=== PATIENT | male | born 1950 ===

== ENCOUNTER 2017-08-07 10:14 | Inpatient (IN) | payer MEDICARE ==
[2017-08-07 10:24] VITALS: BMI 23.6
--- NOTE | 2017-08-07 11:06 | ED PDOC ---
HPI: General Adult Time Seen by Provider: 08/07/17 10:45 Chief Complaint (Nursing): Cough, Cold, Congestion Chief Complaint (Provider): [place] x 4-5 months History Per: Patient History/Exam Limitations: no limitations Onset/Duration Of Symptoms: Days Have you had recent travel within the past 21 days to any of the following countries: [place], [place], [place] or [place]?: No Current Symptoms Are (Timing): Still Present Additional Complaint(s): 67 yo male with no medical problems presents with cough x 4 months. Pt states at night he has worsening cough with phlegm. Pt was seen by a new PMD last week. PT was sent for several tests including EKG and CXR. PT states his insurance will not be active until August 20 so he has been unable to get tests. Past Medical History Reviewed: Historical Data, Nursing Documentation, Vital Signs Vital Signs: Last Vital Signs Temp 98 F 08/07/17 12:36 Pulse 78 08/07/17 12:36 Resp 18 08/07/17 12:36 BP 112/68 08/07/17 12:36 Pulse Ox 96 08/07/17 12:36 - Medical History PMH: No Chronic Diseases - Surgical History Surgical History: No Surg Hx - Family History Family History: States: No Known Family Hx - Living Arrangements Living Arrangements: With Family - Social History Current smoker - smoking cessation education provided: No - Allergies Allergies/Adverse Reactions: Allergies Allergy/AdvReac Type Severity Reaction Status Date / Time seasonal Allergy ITCHING Uncoded 08/07/17 10:30 Review of Systems ROS Statement: Except As Marked, All Systems Reviewed And Found Negative Constitutional: Negative for: Fever, Chills Respiratory: Positive for: Cough, Sputum. Negative for: Shortness of Breath Physical Exam - Reviewed Nursing Documentation Reviewed: Yes Vital Signs Reviewed: Yes - Physical Exam Appears: Positive for: Well, Non-toxic, No Acute Distress Head Exam: Positive for: ATRAUMATIC, NORMAL INSPECTION, NORMOCEPHALIC Skin: Positive for: Normal Color, Warm, DRY Eye Exam: Positive for: Normal appearance ENT: Positive for: Normal ENT Inspection Neck: Positive for: Normal, Painless ROM Cardiovascular/Chest: Positive for: Regular Rate, Rhythm Respiratory: Positive for: Normal Breath Sounds. Negative for: Accessory Muscle Use, Respiratory Distress Back: Positive for: Normal Inspection Extremity: Positive for: Normal ROM Neurologic/Psych: Positive for: Alert, Oriented - Laboratory Results Result Diagrams: 08/07/17 12:20 08/07/17 12:20 - ECG O2 Sat by Pulse Oximetry: 96 Medical Decision Making Medical Decision Making: Abnormal CXR CT order. Pt with elevated proBnP, infiltrate on CT, bilateral effusion. Discussed case with Dr. Gil. Disposition - Clinical Impression Clinical Impression: CHF (congestive heart failure), Pneumonia - Patient ED Disposition Is Patient to be Admitted: Yes - Disposition Disposition Time: 15:47 Condition: STABLE Forms: [employer] (Yoruba)
--- NOTE | 2017-08-07 12:00 | RAD ---
HISTORY: cough x 4 months COMPARISON: No prior. TECHNIQUE: Chest PA and lateral FINDINGS: LUNGS: No infiltrate. PLEURA: Small bilateral pleural effusion. No pneumothorax. CARDIOVASCULAR: Normal heart size. Congestive change. Findings suspicious for congestive heart failure without evidence of neeraj pulmonary edema. OSSEOUS STRUCTURES: No significant abnormalities. VISUALIZED UPPER ABDOMEN: Normal. OTHER FINDINGS: None. IMPRESSION: Congestive change and small bilateral pleural effusion. Possible congestive heart failure.
[2017-08-07 12:29] LABS: BASO % 0.2 % (0.0-2.0); EOS # 0.1 K/uL (0.0-0.7); EOS % 1.2 % (0.0-4.0); HEMOGLOBIN 13.7 g/dL (12.0-18.0); LYMPH # 1.4 K/uL (1.0-4.3); LYMPH % 13.7 % (20.0-40.0); MEAN CELL VOLUME 81.9 fl (80.0-94.0); MEAN CORPUSCULAR HEMOGLOBIN 27.8 pg (27.0-31.0); MEAN CORPUSCULAR HGB CONC 33.9 g/dL (33.0-37.0); MEAN PLATELET VOLUME 9.9 fl (7.2-11.7); MONO # 0.8 K/uL (0.0-0.8); MONO % 7.7 % (0.0-10.0); NEUT # 7.8 K/uL (1.8-7.0); NEUT % 77.2 % (50.0-75.0); NRBC % 0.1 % (0.0-0.0); RBC 4.94 Mil/uL (4.40-5.90); RED CELL DISTRIBUTION WIDTH 15.4 % (11.5-14.5); WHITE BLOOD COUNT 10.2 K/uL (4.8-10.8)
[2017-08-07 12:35] LABS: ALB/GLOB RATIO 1.2 (1.0-2.1); ALBUMIN 3.9 g/dL (3.5-5.0); ALT/SGPT 31 U/L (21-72); AST/SGOT 19 U/L (17-59); BLOOD UREA NITROGEN 20 mg/dl (9-20); CALCIUM 9.6 mg/dL (8.4-10.2); GFR AFRICAN-AMERICAN > 60; GFR NON-AFRICAN AMERICAN > 60
[2017-08-07 12:46] LABS: B-TYPE NATRIURETIC PEPTIDE 3310 pg/ml (0-900)
[2017-08-07] MEDS ORDERED: Sodium Chloride 0.9% 50 ML IV ONE (13:10)
[2017-08-07] MEDS ORDERED: Iohexol 300 100 ML IJ ONE (13:10)
--- NOTE | 2017-08-07 13:58 | CT ---
PROCEDURE: CT Chest with contrast HISTORY: cough x 4 months COMPARISON: None. TECHNIQUE: Contiguous axial images were obtained through the chest with intravenous contrast enhancement. Sagittal and coronal reconstructions were performed. IV contrast: 95 cc Omnipaque 300 Radiation dose (DLP): 405.54 mGy-cm. This CT exam was performed using one or more of the following dose reduction techniques: Automated exposure control, adjustment of the mA and/or kV according to patient size, and/or use of iterative reconstruction technique. FINDINGS: LUNGS: Mild bilateral lower lobe compressive atelectasis. Few small ill-defined opacities in the right upper lobe common nonspecific. Cannot rule out infectious etiology. No neeraj pulmonary infiltrate. 5 mm subpleural nodule in left upper lobe (series 3, image 37). No followup required for this nodule. No other pulmonary mass identified. MEDIASTINUM: Marked aneurysmal dilatation of the ascending thoracic aorta to a diameter of 5.1 cm. Aortic arch and descending thoracic aorta demonstrates normal diameter. Normal sized heart. Main pulmonary artery unremarkable. No vascular congestion. No lymphadenopathy. PLEURA: Moderate bilateral pleural effusion. No pneumothorax. BONES: No fracture. No destructive lesion. UPPER ABDOMEN: Grossly unremarkable. OTHER FINDINGS: None. IMPRESSION: Moderate bilateral pleural effusion with mild bilateral lower lobe compressive atelectasis. Small ill-defined opacities in the right upper lobe, possibly infectious. 5 mm left upper lobe nodule common nonspecific. Aneurysmal dilatation of the ascending thoracic aorta.
[2017-08-07] MEDS ORDERED: Sodium Chloride 3% for Inhalation 4 ML VIAL.NEB IH PRN (14:52)
[2017-08-07] MEDS ORDERED: Azithromycin 500 MG in Sodium Chloride 0.9% 250 ML IVPB ONE (16:15)
[2017-08-07] MEDS ORDERED: cefTRIAXone (Rocephin) 1 gm Inj ONE (16:29)
[2017-08-07] MEDS: Azithromycin 500 MG in Sodium Chloride 0.9% 250 ML IVPB SCH (21:00)
[2017-08-08 07:43] LABS: BASO % 0.1 % (0.0-2.0); EOS # 0.3 K/uL (0.0-0.7); EOS % 3.1 % (0.0-4.0); LYMPH # 1.7 K/uL (1.0-4.3); LYMPH % 18.7 % (20.0-40.0); MEAN CELL VOLUME 82.5 fl (80.0-94.0); MEAN CORPUSCULAR HEMOGLOBIN 27.8 pg (27.0-31.0); MEAN CORPUSCULAR HGB CONC 33.6 g/dL (33.0-37.0); MEAN PLATELET VOLUME 10.2 fl (7.2-11.7); MONO # 0.7 K/uL (0.0-0.8); NEUT # 6.4 K/uL (1.8-7.0); NEUT % 70.1 % (50.0-75.0); RBC 5.06 Mil/uL (4.40-5.90); RED CELL DISTRIBUTION WIDTH 15.4 % (11.5-14.5); WHITE BLOOD COUNT 9.1 K/uL (4.8-10.8)
[2017-08-08 07:51] LABS: BLOOD UREA NITROGEN 24 mg/dl (9-20); CALCIUM 9.5 mg/dL (8.4-10.2); GFR AFRICAN-AMERICAN > 60; GFR NON-AFRICAN AMERICAN > 60
[2017-08-08] MEDS: Enoxaparin 40 mg Syringe SC SCH (09:29)
[2017-08-08] MEDS: Azithromycin 500 MG in Sodium Chloride 0.9% 250 ML IVPB SCH (09:56)
--- NOTE | 2017-08-08 21:49 | CP.PCM.HP ---
History of Present Illness - History of Present Illness History of Present Illness: CC: Cough History of Present Illness: A 67 yo male with no medical problems presents with cough x 4 months. Pt states at night he has worsening cough with phlegm. Pt was seen by a new PMD last week. PT was sent for several tests including EKG and CXR. PT states his insurance will not be active until August 20 so he has been unable to get tests. in the ER, he was found to ahve high ProBNP. Denies fever or chills. Present on Admission - Present on Admission Any Indicators Present on Admission: No Review of Systems - Review of Systems All systems: reviewed and no additional remarkable complaints except Past Patient History - Past Medical History & Family History Past Medical History?: No Past Family History: Reviewed and not pertinent - Past Social History Smoking Status: Never Smoked Alcohol: None Drugs: Denies - CARDIAC Hx Circulatory Problems: No - PULMONARY Hx Respiratory Disorders: No - NEUROLOGICAL Hx Neurological Disorder: No - HEENT Hx HEENT Problems: No - RENAL Hx Chronic Kidney Disease: No - ENDOCRINE/METABOLIC Hx Endocrine Disorders: No - HEMATOLOGICAL/ONCOLOGICAL Hx Blood Disorders: No - INTEGUMENTARY Hx Dermatological Problems: No - MUSCULOSKELETAL/RHEUMATOLOGICAL Hx Musculoskeletal Disorders: No Hx Falls: No - GASTROINTESTINAL Hx Gastrointestinal Disorders: No - GENITOURINARY/GYNECOLOGICAL Hx Genitourinary Disorders: No - PSYCHIATRIC Hx Psychophysiologic Disorder: No Hx Substance Use: No - SURGICAL HISTORY Hx Surgeries: No - ANESTHESIA Hx Anesthesia: No Hx Anesthesia Reactions: No Hx Malignant Hyperthermia: No Has any member of the family had a problem w/ anesthesia?: No Meds Allergies/Adverse Reactions: Allergies Allergy/AdvReac Type Severity Reaction Status Date / Time apple Allergy Intermediate SWELLING Verified 08/16/17 00:27 pear Allergy Intermediate SWELLING Verified 08/16/17 00:27 strawberry Allergy Intermediate SWELLING Verified 08/16/17 00:27 grape Allergy SWELLING Verified 08/16/17 00:27 seasonal Allergy ITCHING Uncoded 08/16/17 00:27 Physical Exam - Constitutional Appears: Well, In Acute Distress - Head Exam Head Exam: ATRAUMATIC, NORMAL INSPECTION, NORMOCEPHALIC - Eye Exam Eye Exam: EOMI, Normal appearance, PERRL Pupil Exam: NORMAL ACCOMODATION, PERRL - ENT Exam ENT Exam: Mucous Membranes Moist, Normal Exam - Neck Exam Neck exam: Positive for: Full Rom, Normal Inspection - Respiratory Exam Respiratory Exam: Decreased Breath Sounds, Rales - Cardiovascular Exam Cardiovascular Exam: REGULAR RHYTHM, +S1, +S2 - GI/Abdominal Exam GI & Abdominal Exam: Normal Bowel Sounds, Soft. absent: Tenderness - Extremities Exam Extremities exam: Positive for: full ROM, normal inspection - Back Exam Back exam: NORMAL INSPECTION - Neurological Exam Neurological exam: Alert, CN II-XII Intact, Normal Gait, Oriented x3, Reflexes Normal - Psychiatric Exam Psychiatric exam: Normal Affect, Normal Mood - Skin Skin Exam: Dry, Intact, Normal Color, Warm Results - Vital Signs Recent Vital Signs: Last Vital Signs Temp 98.1 F 08/08/17 19:56 Pulse 88 08/08/17 19:56 Resp 16 08/08/17 19:56 BP 107/71 08/08/17 19:56 Pulse Ox 97 08/08/17 19:56 - Labs Result Diagrams: 08/08/17 06:14 08/08/17 06:14 Labs: Laboratory Results - last 24 hr 08/08/17 08/08/17 08/08/17 02:40 06:14 06:14 WBC 9.1 RBC 5.06 Hgb 14.0 Hct 41.7 MCV 82.5 MCH 27.8 MCHC 33.6 RDW 15.4 H Plt Count 280 MPV 10.2 Neut % (Auto) 70.1 Lymph % (Auto) 18.7 L Cook % (Auto) 8.0 Eos % (Auto) 3.1 Baso % (Auto) 0.1 Neut # (Auto) 6.4 Lymph # (Auto) 1.7 Cook # (Auto) 0.7 Eos # (Auto) 0.3 Baso # (Auto) 0.0 Sodium 143 Potassium 4.3 Chloride 103 Carbon Dioxide 26 Anion Gap 18 BUN 24 H Creatinine 0.9 Est GFR ( Amer) > 60 Est GFR (Non-Af Amer) > 60 Random Glucose 107 Calcium 9.5 Troponin I 0.0270 08/08/17 10:32 WBC RBC Hgb Hct MCV MCH MCHC RDW Plt Count MPV Neut % (Auto) Lymph % (Auto) Cook % (Auto) Eos % (Auto) Baso % (Auto) Neut # (Auto) Lymph # (Auto) Cook # (Auto) Eos # (Auto) Baso # (Auto) Sodium Potassium Chloride Carbon Dioxide Anion Gap BUN Creatinine Est GFR ( Amer) Est GFR (Non-Af Amer) Random Glucose Calcium Troponin I 0.0160 - Imaging and Cardiology Chest x-ray Status: Report reviewed by me Additional comment: HISTORY: cough x 4 months COMPARISON: No prior. TECHNIQUE: Chest PA and lateral FINDINGS: LUNGS: No infiltrate. PLEURA: Small bilateral pleural effusion. No pneumothorax. CARDIOVASCULAR: Normal heart size. Congestive change. Findings suspicious for congestive heart failure without evidence of neeraj pulmonary edema. OSSEOUS STRUCTURES: No significant abnormalities. VISUALIZED UPPER ABDOMEN: Normal. OTHER FINDINGS: None. IMPRESSION: Congestive change and small bilateral pleural effusion. Possible congestive heart failure. CT scan - chest Status: Report reviewed by me Additional comment: CT Chest with contrast HISTORY: cough x 4 months COMPARISON: None. TECHNIQUE: Contiguous axial images were obtained through the chest with intravenous contrast enhancement. Sagittal and coronal reconstructions were performed. IV contrast: 95 cc Omnipaque 300 Radiation dose (DLP): 405.54 mGy-cm. This CT exam was performed using one or more of the following dose reduction techniques: Automated exposure control, adjustment of the mA and/or kV according to patient size, and/or use of iterative reconstruction technique. FINDINGS: LUNGS: Mild bilateral lower lobe compressive atelectasis. Few small ill-defined opacities in the right upper lobe common nonspecific. Cannot rule out infectious etiology. No neeraj pulmonary infiltrate. 5 mm subpleural nodule in left upper lobe (series 3, image 37). No followup required for this nodule. No other pulmonary mass identified. MEDIASTINUM: Marked aneurysmal dilatation of the ascending thoracic aorta to a diameter of 5.1 cm. Aortic arch and descending thoracic aorta demonstrates normal diameter. Normal sized heart. Main pulmonary artery unremarkable. No vascular congestion. No lymphadenopathy. PLEURA: Moderate bilateral pleural effusion. No pneumothorax. BONES: No fracture. No destructive lesion. UPPER ABDOMEN: Grossly unremarkable. OTHER FINDINGS: None. IMPRESSION: Moderate bilateral pleural effusion with mild bilateral lower lobe compressive atelectasis. Small ill-defined opacities in the right upper lobe, possibly infectious. 5 mm left upper lobe nodule common nonspecific. Aneurysmal dilatation of the ascending thoracic aorta. Assessment & Plan (1) Pneumonia Assessment and Plan: VS Acute Pulmonary Edema, High ProBNP R/O CHF IV Azithromycin/Rocephin O2 Via NC Echocardiography Serial troponin and EKG Status: Acute
--- NOTE | 2017-08-09 06:29 | CARD ---
APPROVED REPORT EKG Measurement Heart [id number] 182P6 [id number] <Conclusion> Normal sinus rhythm Possible Left atrial enlargement T wave abnormality, consider lateral ischemia Abnormal ECG
--- NOTE | 2017-08-09 06:42 | CARD ---
APPROVED REPORT EKG Measurement Heart [id number] [place] 180P37 [id number] <Conclusion> Sinus rhythm with premature atrial complexes Possible Left atrial enlargement ST & T wave abnormality, consider lateral ischemia Abnormal ECG
[2017-08-09] MEDS: Enoxaparin 40 mg Syringe SC SCH (09:00)
[2017-08-09] MEDS: Azithromycin 500 MG in Sodium Chloride 0.9% 250 ML IVPB SCH (09:03)
[2017-08-10 00:11] VITALS: RESP 18
[2017-08-10 07:42] VITALS: O2SAT 96
--- NOTE | 2017-08-10 08:41 | CARD ---
APPROVED REPORT EXAM: Two-dimensional and M-mode echocardiogram with Doppler and color Doppler. Other Information Quality : GoodRhythm : NSR INDICATION Congestive Heart Failure 2D DIMENSIONS IVSd1.02 (0.7-1.1cm)LVDd5.78 (3.9-5.9cm) LVOT Diameter1.77 (1.8-2.4cm)PWd1.09 (0.7-1.1cm) IVSs1.59 (0.8-1.2cm)LVDs3.85 (2.5-4.0cm) FS (%) 33.4 %PWs1.57 (0.8-1.2cm) M-Mode DIMENSIONS Left Atrium (MM)5.82 (2.5-4.0cm)IVSd0.97 (0.7-1.1cm) Aortic Root3.62 (2.2-3.7cm)LVDd7.46 (4.0-5.6cm) Aortic Cusp Exc.1.06 (1.5-2.0cm)PWd1.10 (0.7-1.1cm) IVSs1.54 cmFS (%) 29 % LVDs5.29 (2.0-3.8cm)PWs1.72 cm Aortic Valve AoV Peak Izjjaswj935.1cm/[place] Peak GR.77mmHgLVOT Peak Srckgemp85.7cm/s LVOT VTI15.04cmAVA (VMAX)0.20cm2 Mitral Valve E/A ratio0.0 TDI E/Lateral E'0.0E/Medial E'0.0 LEFT VENTRICLE The Left Ventricle is mildly dilated. There is normal left ventricular wall thickness. Left ventricle systolic function is mildly to moderately impaired. The Ejection Fraction is 30-35%. Inferior and lateral delgado were moderately hypokinetic Other segments contracted normally Transmitral Doppler flow pattern is Grade I-abnormal relaxation pattern. RIGHT VENTRICLE The right ventricle is normal size. There is normal right ventricular wall thickness. The right ventricular systolic function is normal. ATRIA The left atrium is mildly dilated. The right atrium size is normal. AORTIC VALVE The aortic valve is moderately to severely sclerotic. There is trace aortic regurgitation. There is severe valvular aortic stenosis. Calculated aortic valve area is 0.35 cm2 with maximum pressure gradient of 81 mmHg. MITRAL VALVE The mitral valve leaflets are thickened. There is no evidence of mitral valve prolapse. There is no mitral valve stenosis. Mitral regurgitation is moderate to severe. TRICUSPID VALVE The tricuspid valve is normal in structure. There is no tricuspid valve regurgitation noted. PULMONIC VALVE The pulmonary valve is normal in structure. There is no pulmonic valvular regurgitation. GREAT VESSELS The aortic root is normal in size. The IVC is normal in size and collapses >50% with inspiration. PERICARDIAL EFFUSION The pericardium appears normal. <Conclusion> The Left Ventricle is mildly dilated. There is normal left ventricular wall thickness. Inferior and lateral delgado were moderately hypokinetic Other segments contracted normally Left ventricle systolic function is mildly to moderately impaired. The Ejection Fraction is 30-35%. Transmitral Doppler flow pattern is Grade I-abnormal relaxation pattern. The aortic valve is moderately to severely sclerotic. There is severe valvular aortic stenosis. Calculated aortic valve area is 0.35 cm2 with maximum pressure gradient of 81 mmHg. Mitral regurgitation is moderate to severe.
[2017-08-10] MEDS: Enoxaparin 40 mg Syringe SC SCH (08:57)
[2017-08-10] MEDS: Azithromycin 500 MG in Sodium Chloride 0.9% 250 ML IVPB SCH ×2 (10:16→14:33)
--- NOTE | 2017-08-10 11:23 | CARD ---
APPROVED REPORT EKG Measurement Heart [id number] [place] 186P32 [id number] <Conclusion> Normal sinus rhythm Possible Left atrial enlargement T wave abnormality, consider lateral ischemia Abnormal ECG
--- NOTE | 2017-08-10 11:26 | CARD ---
APPROVED REPORT EKG Measurement Heart [id number] 188P13 [id number] <Conclusion> Normal sinus rhythm Possible Left atrial enlargement Nonspecific T wave abnormality Abnormal ECG
[2017-08-10 12:25] VITALS: BP 101/64; PULSE 89; TEMP 98
--- NOTE | 2017-08-10 22:53 | CON ---
CARDIOLOGY CONSULTATION DATE: HISTORY OF PRESENT ILLNESS: The patient is a 67-year-old male who is unaware of any prior cardiac history; however, he was told by his primary physician that he needs to be referred to a early childhood lead teacher. The patient was admitted with a diagnosis of pneumonia and pleural effusion. The patient was found to have severe aortic stenosis as well as ascending aortic aneurysm measuring 5.1 cm. The patient denies any dizziness or syncope in the past. Denies any chest pain. The patient denies any prior thoracocentesis in the past. SOCIAL HISTORY: The patient is a nonsmoker. He is only a social drinker. CURRENT MEDICATIONS: Rocephin 1 g intravenously daily, Lovenox 40 mg subcutaneously twice a day, and Zithromax 500 mg orally daily. PAST MEDICAL HISTORY: Insignificant. REVIEW OF SYSTEMS: No retrosternal chest pain. No palpitation. No dizziness or syncope. No chest or back pain. The patient did experience productive cough. PHYSICAL EXAMINATION: GENERAL: The patient is an elderly male who does not appear to be in acute distress. VITAL SIGNS: Blood pressure 110/71, heart rate 98, temperature 97.9, and respirations 18. HEENT: Normocephalic. NECK: No JVD. CHEST: Left basilar rhonchi. HEART: S1 and S2 regular. Grade 5/6 ejection systolic murmur over left sternal border with late peaking. ABDOMEN: Soft. EXTREMITIES: No edema. LABORATORY DATA: Hemoglobin and hematocrit on the 20th are 14 and 41.7. White count and platelet count are within normal limits. SMA-7 on the 20th is within normal limits except for BUN of 24. Four sets of troponins are negative. ProBNP is 3310. EKG on the 20th revealed sinus rhythm, possible left atrial enlargement, and consider lateral ischemia. Echocardiographic study revealed mildly dilated left ventricle, inferior and lateral wall hypokinesis, ejection fraction estimated in the range of 30% to 35%, severe valvular aortic stenosis with a calculated valve area of 0.35 cm2 with maximum gradient of 81 mmHg, and [id number] mitral insufficiency. Chest CT scan with IV contrast revealed moderate bilateral pleural effusion, mild bilateral lower lobe compression atelectasis. Ascending aortic aneurysm measuring 5.1 cm. ASSESSMENT: 1. Pneumonia and bilateral pleural effusion. 2. Severe aortic stenosis. 3. Ascending aortic aneurysm. 4. Consider ischemic cardiomyopathy. RECOMMENDATIONS: Start aspirin 81 mg once a day, Coreg 3.125 mg twice a day, and enalapril 2.5 mg once a day. Cardiac catheterization was recommended to evaluate the coronary circulation. The patient agreed to have cardiac catheterization; however, he insist on going home today. I explained to the patient that will not be appropriate to come as an outpatient for such procedure in view of multiple medical problems and after that the patient will need to be referred for cardiothoracic surgery for the aortic stenosis, mitral insufficiency, ascending aortic aneurysm, and the possibility of coronary artery bypass surgery. The case will be discussed with the primary physician, . Roel Phelps MD
--- NOTE | 2017-08-11 10:48 | PQF CHF ---
Dr. Mattie Rangel Documentation Report documented that pt has a history of chf. If you agree with this diagnosis please clarify acuity and type. This form is a permanent part of the medical record Clarification of your documentation is requested to better reflect the severity of illness and intensity of treatment of your patient. Indicators present [x] Diagnosis of CHF and/or history of CHF [] BNP > 200 [] Imaging Finding of Pulmonary Edema /Pleural Effusions [] Fluid/Volume Overload [] Pitting edema [] Ejection Fraction < 40% (Indicative of Systolic Heart Failure) [] Ejection Fraction > 40% (Indicative of Diastolic Heart Failure) [] Dyspnea / Orthopenea / Paroxysmal Nocturnal Dyspnea [] Other: Location in the medical record that reflects the above clinical findings: [] Treatment Provided: [] PHYSICIAN'S RESPONSE Based on your medical judgment of the clinical indicators outlined above, are you treating this patient for a known or suspected: [] Acute CHF [] Systolic [] Diastolic [] Combined [] Chronic CHF [] Systolic [] Diastolic [] Combined [] Acute on Chronic CHF []Systolic [] Diastolic [] Combined [] CHF due hypertension [] Acute systolic []Chronic systolic [] Acute/ chronic systolic [] Other, please indicate: [] [] If Unable to Determine, please check the box, sign and date. Present On Admission (POA) Indicator: [] Present at the time of admission [] Not present at the time of admission [] Clinically Undetermined In responding to this query, please exercise your independent professional judgment. The fact that a question is asked does not imply that any particular answer is desired or expected. Thank you for your clarification on this documentation. If you have any questions please call:[ ] * Thank you, [ ]Anahi Beauchamp monogram and letter paster ARON
--- NOTE | 2017-08-13 01:45 | CP.PCM.PN ---
Subjective - Date & Time of Evaluation Date of Evaluation: 08/09/17 Time of Evaluation: 17:15 - Subjective Subjective: Seen and examined at the bed side. States feeling better. Continue to have sob. Objective - Vital Signs/Intake and Output Vital Signs (last 24 hours): Temp Pulse Resp BP Pulse Ox 98 F 89 18 101/64 96 08/10/17 12:24 08/10/17 13:42 08/10/17 12:24 08/10/17 13:42 08/10/17 12:24 - Labs Labs: 08/08/17 06:14 08/08/17 06:14 - Constitutional Appears: Well - Head Exam Head Exam: ATRAUMATIC, NORMAL INSPECTION, NORMOCEPHALIC - Eye Exam Eye Exam: EOMI, Normal appearance, PERRL Pupil Exam: NORMAL ACCOMODATION, PERRL - ENT Exam ENT Exam: Mucous Membranes Moist, Normal Exam - Neck Exam Neck Exam: Full ROM, Normal Inspection. absent: Lymphadenopathy - Respiratory Exam Respiratory Exam: Clear to Ausculation Bilateral, NORMAL BREATHING PATTERN - Cardiovascular Exam Cardiovascular Exam: REGULAR RHYTHM, +S1, +S2. absent: Murmur - GI/Abdominal Exam GI & Abdominal Exam: Soft, Normal Bowel Sounds. absent: Tenderness - Exam Bimanual exam: NORMAL BIMANUAL EXAM - Extremities Exam Extremities Exam: Full ROM, Normal Capillary Refill, Normal Inspection. absent : Joint Swelling, Pedal Edema - Back Exam Back Exam: NORMAL INSPECTION - Neurological Exam Neurological Exam: Alert, Awake, CN II-XII Intact, Normal Gait, Oriented x3 - Psychiatric Exam Psychiatric exam: Normal Affect, Normal Mood - Skin Skin Exam: Dry, Intact, Normal Color, Warm Assessment and Plan (1) Pneumonia Assessment & Plan: VS Acute Pulmonary Edema, High ProBNP R/O CHF IV Azithromycin/Rocephin O2 Via [place] Echocardiography Serial Troponin and EKG Cardiology Consult Status: Acute
--- NOTE | 2017-08-13 01:46 | CP.PCM.PN ---
Subjective - Date & Time of Evaluation Date of Evaluation: 08/10/17 Time of Evaluation: 23:00 - Subjective Subjective: Continue to complain SOB. Patient refusing to stay despite abnormal Echocardiogram finding of Severe aortic Stenosis and Moderate to svere Mitral Regurgitaion with wall motion abnormality=ies. Objective - Vital Signs/Intake and Output Vital Signs (last 24 hours): Temp Pulse Resp BP Pulse Ox 98 F 89 18 101/64 96 08/10/17 12:24 08/10/17 13:42 08/10/17 12:24 08/10/17 13:42 08/10/17 12:24 - Labs Labs: 08/08/17 06:14 08/08/17 06:14 Assessment and Plan (1) Acute pulmonary edema Status: Acute (2) CHF (congestive heart failure) Status: Acute (3) Pneumonia Status: Acute - Assessment and Plan (Free Text) Assessment: Signed out AMA
--- NOTE | 2017-08-17 23:04 | CP.PCM.DIS ---
Provider - Provider Date of Admission: 08/07/17 15:47 Attending physician: Duglas Resendez MD Time Spent in preparation of Discharge (in minutes): 25 Diagnosis - Discharge Diagnosis (1) Acute pulmonary edema Status: Acute (2) CHF (congestive heart failure) Status: Acute (3) Pneumonia Status: Acute (4) Mitral regurgitation and aortic stenosis Status: Acute Priority: High Hospital Course - Lab Results Lab Results: Micro Results 08/08/17 11:00 Sputum Gram Stain - Final 08/08/17 11:00 Sputum Sputum Culture - Final Staphylococcus Aureus Yeast Species Most Recent Lab Values WBC 9.1 K/uL (4.8-10.8) 08/08/17 06:14 RBC 5.06 Mil/uL (4.40-5.90) 08/08/17 06:14 Hgb 14.0 g/dL (12.0-18.0) 08/08/17 06:14 Hct 41.7 % (35.0-51.0) 08/08/17 06:14 MCV 82.5 fl (80.0-94.0) 08/08/17 06:14 MCH 27.8 pg (27.0-31.0) 08/08/17 06:14 MCHC 33.6 g/dL (33.0-37.0) 08/08/17 06:14 RDW 15.4 % (11.5-14.5) H 08/08/17 06:14 Plt Count 280 K/uL (130-400) 08/08/17 06:14 MPV 10.2 fl (7.2-11.7) 08/08/17 06:14 Neut % (Auto) 70.1 % (50.0-75.0) 08/08/17 06:14 Lymph % (Auto) 18.7 % (20.0-40.0) L 08/08/17 06:14 [place] % (Auto) 8.0 % (0.0-10.0) 08/08/17 06:14 Eos % (Auto) 3.1 % (0.0-4.0) 08/08/17 06:14 Baso % (Auto) 0.1 % (0.0-2.0) 08/08/17 06:14 Neut # (Auto) 6.4 K/uL (1.8-7.0) 08/08/17 06:14 Lymph # (Auto) 1.7 K/uL (1.0-4.3) 08/08/17 06:14 [place] # (Auto) 0.7 K/uL (0.0-0.8) 08/08/17 06:14 Eos # (Auto) 0.3 K/uL (0.0-0.7) 08/08/17 06:14 Baso # (Auto) 0.0 K/uL (0.0-0.2) 08/08/17 06:14 Sodium 143 mmol/l (132-148) 08/08/17 06:14 Potassium 4.3 MMOL/L (3.6-5.0) 08/08/17 06:14 Chloride 103 mmol/L (98-107) 08/08/17 06:14 Carbon Dioxide 26 mmol/L (22-30) 08/08/17 06:14 Anion Gap 18 (10-20) 08/08/17 06:14 BUN 24 mg/dl (9-20) H 08/08/17 06:14 Creatinine 0.9 mg/dl (0.8-1.5) 08/08/17 06:14 Est GFR ( Amer) > 60 08/08/17 06:14 Est GFR (Non-Af Amer) > 60 08/08/17 06:14 Random Glucose 107 mg/dL (75-110) 08/08/17 06:14 Calcium 9.5 mg/dL (8.4-10.2) 08/08/17 06:14 Total Bilirubin 1.5 mg/dl (0.2-1.3) H 08/07/17 12:20 AST 19 U/L (17-59) 08/07/17 12:20 ALT 31 U/L (21-72) 08/07/17 12:20 Alkaline Phosphatase 59 U/L (38-126) 08/07/17 12:20 Troponin I 0.0160 ng/mL (0.00-0.120) 08/08/17 10:32 NT-Pro-B Natriuret Pep 3310 pg/ml (0-900) H 08/07/17 12:20 Total Protein 7.0 G/DL (6.3-8.2) 08/07/17 12:20 Albumin 3.9 g/dL (3.5-5.0) 08/07/17 12:20 Globulin 3.1 gm/dL (2.2-3.9) 08/07/17 12:20 Albumin/Globulin Ratio 1.2 (1.0-2.1) 08/07/17 12:20 Discharge Exam - Head Exam Head Exam: ATRAUMATIC, NORMAL INSPECTION, NORMOCEPHALIC Discharge Plan - Follow Up Plan Condition: STABLE Disposition: AGAINST MEDICAL ADVICE Instructions: Heart Failure, Adult (DC), Pneumonia, Adult (DC), Heart Failure ( DC), Heart Failure (GEN), Pacemaker (DC), Pacemaker (GEN), Pulmonary Edema (DC) , Pulmonary Edema (GEN), Ascites (DC), Ascites (GEN) Referrals: Roel Phelps MD [Staff Provider] - Rose Mccullough ARNP [Family Provider] -
== END 2017-08-10 15:18 | disposition left against medical advice (07) | DRG 291 ==
LOC: H.ER 10:14 → H.ERHOLD 15:47 → H.TEL 17:39
PROVIDERS: ADMIT Internal Medicine; ATTEND Internal Medicine
DX: I50.23 Acute on chronic systolic (congestive) heart failure (principal); J18.9 Pneumonia, unspecified organism; I71.2 Thoracic aortic aneurysm, without rupture; Z91.018 Allergy to other foods; Z53.21 Procedure and treatment not carried out due to patient leaving prior to being seen by health care provider; I08.0 Rheumatic disorders of both mitral and aortic valves